=== PATIENT | male | born 1985 | race African-American/Black ===

== ENCOUNTER 2021-12-29 10:13 | Emergency (ER) | payer SELFPAY ==
[~2021-12-29] VITALS: Ht 175.3 cm; Wt 111.2 kg
[2021-12-29] MEDS ORDERED: IBUPROFEN 800 MG TAB PO ONE (11:40)
[2021-12-29] MEDS ORDERED: PENI500T PO (11:46)
[2021-12-29] MEDS ORDERED: IBUP-1022 PO (11:46)
[2021-12-29 11:47] VITALS: BP 151/87
== END 2021-12-29 11:53 | disposition home or self-care (01) ==
LOC: M ED 10:13
DX: J02.0 Streptococcal pharyngitis (principal); J03.00 Acute streptococcal tonsillitis, unspecified

== ENCOUNTER 2023-03-28 12:07 | Emergency (ER) | payer SELFPAY ==
[~2023-03-28] VITALS: Ht 175.3 cm; Wt 113.0 kg
[2023-03-28 12:07] VITALS: BP 165/90; TEMP 98.5; O2SAT 98
[~2023-03-28 12:07] MED LIST: IBUP-1022 PO; PENI500T PO
== END 2023-03-28 14:52 | disposition home or self-care (01) ==
LOC: M ED 12:07
DX: Z00.00 Encounter for general adult medical examination without abnormal findings (principal)